=== PATIENT | female | born 1970 | race American Indian/Alaskan Native ===

== ENCOUNTER 2022-05-14 06:51 | Emergency (ER) | payer MEDICAID ==
[2022-05-14] MEDS ORDERED: SODIUM CHLORIDE 0.9% 1000 ML 1,000 ML IV ONE (07:15)
[2022-05-14] MEDS ORDERED: MECLIZINE 25 MG TAB PO ONE (07:15)
[2022-05-14] MEDS ORDERED: FAMOTIDINE 20 MG/2 ML INJ IV ONE (07:15)
[2022-05-14] MEDS ORDERED: ONDANSETRON 4 MG/2 ML INJ IV ONE (07:15)
--- NOTE | 2022-05-14 07:17 | Emergency Department Report ---
ED Dizziness HPI - General Chief Complaint: Dizziness Stated Complaint: DIZZINESS,BP MEDS REFILL Time Seen by Provider: 05/14/22 07:07 Source: patient, EMS Mode of arrival: Stretcher Limitations: No Limitations - History of Present Illness Initial Comments: 52-year-old female with past medical history of hypertension and gastritis presents to the hospital complaining of dizziness upon waking at 4:30 AM. She describes a spinning sensation with associated nausea without vomiting. Symptoms worse with sitting up and head movement. She denies headache, chest pain, shortness of breath, and palpitations. She has been noncompliant with her BP medication x1 week. Medications include lisinopril 40 mg daily and amlodipine 10 mg daily. Allergies: Oxycodone causes her to "pass out" - Related Data Previous Rx's Medication Instructions Recorded Last Taken Type Meclizine [Antivert] 25 mg PO TID PRN #30 tab 05/14/22 Unknown Rx Ondansetron [Zofran Odt] 4 mg PO Q8HR PRN #20 tab.rapdis 05/14/22 Unknown Rx Allergies Allergy/AdvReac Type Severity Reaction Status Date / Time oxycodone AdvReac Unknown Verified 05/14/22 07:17 ED Review of Systems ROS: Stated complaint: DIZZINESS,BP MEDS REFILL Other details as noted in HPI ED Past Medical Hx - Medications Home Medications: Home Medications Medication Instructions Recorded Confirmed Last Taken Type Meclizine [Antivert] 25 mg PO TID PRN #30 tab 05/14/22 Unknown Rx Ondansetron [Zofran Odt] 4 mg PO Q8HR PRN #20 tab.rapdis 05/14/22 Unknown Rx ED Physical Exam - General Limitations: No Limitations - Other Other exam information: General: No acute distress Head: Atraumatic Eyes: normal appearance ENT: Moist mucous membranes Neck: Normal appearance, no midline tenderness Chest: Clear to auscultation bilaterally CV: Bradycardic regular rhythm Abdomen: Soft, normal bowel sounds, nontender, nondistended, no rebound or guarding Back: Normal inspection Extremity: Normal inspection, full range of motion Neuro: Alert O x 3, no facial asymmetry, speech clear, no gross motor sensory deficit Psych: Appropriate behavior Skin: No rash ED Course Vital Signs 05/14/22 05/14/22 05/14/22 06:58 07:02 08:22 Temperature 98.6 F 97.9 F Pulse Rate 61 43 L Respiratory 16 17 Rate Blood Pressure 141/72 176/89 [Right] O2 Sat by Pulse 98 98 97 Oximetry 05/14/22 05/14/22 05/14/22 08:38 09:12 09:15 Temperature 98.1 F Pulse Rate 66 48 L Respiratory 20 15 14 Rate Blood Pressure 177/65 176/91 [Right] O2 Sat by Pulse 100 100 Oximetry - Reevaluation(s) Reevaluation #1: 05/14/22 10:26 Patient reports feeling much better with ED treatment. Able to ambulate ED Medical Decision Making - Lab Data Result diagrams: 05/14/22 07:29 05/14/22 07:29 Lab Results 05/14/22 05/14/22 05/14/22 Range/Units 07:29 07:29 07:29 WBC 5.9 (4.5-11.0) K/mm3 RBC 3.99 (3.65-5.03) M/mm3 Hgb 10.8 (10.1-14.3) gm/dl Hct 33.8 (30.3-42.9) % MCV 85 (79-97) fl MCH 27 L (28-32) pg MCHC 32 (30-34) % RDW 15.4 H (13.2-15.2) % Plt Count 216 (140-440) K/mm3 Lymph % (Auto) 54.3 H (13.4-35.0) % [place] % (Auto) 8.4 H (0.0-7.3) % Eos % (Auto) 1.3 (0.0-4.3) % Baso % (Auto) 0.5 (0.0-1.8) % Lymph # (Auto) 3.2 (1.2-5.4) K/mm3 [place] # (Auto) 0.5 (0.0-0.8) K/mm3 Eos # (Auto) 0.1 (0.0-0.4) K/mm3 Baso # (Auto) 0.0 (0.0-0.1) K/mm3 Seg Neutrophils % 35.5 L (40.0-70.0) % Seg Neutrophils # 2.1 (1.8-7.7) K/mm3 Sodium 145 (137-145) mmol/L Potassium 3.6 (3.6-5.0) mmol/L Chloride 108.2 H (98-107) mmol/L Carbon Dioxide 28 (22-30) mmol/L Anion Gap 12 mmol/L BUN 16 (7-17) mg/dL Creatinine 0.9 (0.6-1.2) mg/dL Estimated GFR > 60 ml/min BUN/Creatinine Ratio 18 % Glucose 100 (65-100) mg/dL Calcium 9.6 (8.4-10.2) mg/dL Magnesium 2.00 (1.7-2.3) mg/dL Total Bilirubin 0.20 (0.1-1.2) mg/dL AST 22 (5-40) units/L ALT 26 (7-56) units/L Alkaline Phosphatase 58 (35-129) units/L Total Protein 6.5 (6.3-8.2) g/dL Albumin 4.2 (3.9-5) g/dL Albumin/Globulin Ratio 1.8 % TSH 1.550 (0.270-4.200) mlU/mL Free T4 1.11 (0.76-1.46) ng/dL - EKG Data -: EKG Interpreted by Me EKG shows normal: sinus rhythm, ST-T waves (no stemi) Rate: bradycardia (47) - Medical Decision Making Patient feels much better with ED treatment including IV fluids, Zofran, and meclizine. Labs unremarkable. EKG shows sinus bradycardia that improved prior to discharge. Pt ambulates without difficulty. During my evaluation systolic pressure is 140s at the bedside, Critical Care Time: No Critical care attestation.: If time is entered above; I have spent that time in minutes in the direct care of this critically ill patient, excluding procedure time. ED Disposition Clinical Impression: Vertigo Disposition: 01 HOME / SELF CARE / HOMELESS Is pt being admited?: No Does the pt Need Aspirin: No Condition: Stable Instructions: Dizziness Additional Instructions: Take the medication as prescribed. Follow-up with your doctor or doctor/clinic provided. Return if symptoms worsen as indicated by your discharge instructions. Prescriptions: Meclizine [Antivert] 25 mg PO TID PRN #30 tab PRN Reason: Vertigo Ondansetron [Zofran Odt] 4 mg PO Q8HR PRN #20 tab.rapdis PRN Reason: Nausea And Vomiting Referrals: PRIMARY CARE, [Primary Care Provider] - 3-5 Days [facility] [Provider Group] - 3-5 Days SHAUNA SPEARS MD [Referring] - 3-5 Days Time of Disposition: 11:12 - Assessment Assessment Interval: Baseline - Level of Consciousness 1a. Level of Consciousness: alert/keenly responsive - LOC Questions 1b. LOC Questions: answers both correctly - LOC Command 1c. LOC Commands: performs tasks correctly - Best Gaze 2. Best Gaze: normal - Visual 3. Visual: no visual loss - Facial Palsy 4. Facial Palsy: normal symmetrical movement - Motor Arm 5a. Motor Arm Left: no drift 5b. Motor Arm Right: no drift - Motor Leg 6a. Motor Leg Left: no drift 6b. Motor Leg Right: no drift - Limb Ataxia 7. Limb Ataxia: absent - Sensory 8. Sensory: normal - Best Language 9. Best Language: no aphasia - Dysarthria 10. Dysarthria: normal - Extinction and Inattention 11. Extinction/Inattention: no abnormality - Scoring Total Score: 0 Stroke Severity: No Stroke Symptoms
[2022-05-14 07:59] LABS: Basophils % (Auto) 0.5 % (0.0-1.8); Eosinophils # (Auto) 0.1 K/mm3 (0.0-0.4); Eosinophils % (Auto) 1.3 % (0.0-4.3); Hematocrit 33.8 % (30.3-42.9); Hemoglobin 10.8 gm/dl (10.1-14.3); Lymphocytes # (Auto) 3.2 K/mm3 (1.2-5.4); Lymphocytes % (Auto) 54.3 % (13.4-35.0); Mean Corpuscular HGB Conc 32 % (30-34); Mean Corpuscular Volume 85 fl (79-97); Monocytes # (Auto) 0.5 K/mm3 (0.0-0.8); Monocytes % (Auto) 8.4 % (0.0-7.3); Platelet Count 216 K/mm3 (140-440); Red Blood Count 3.99 M/mm3 (3.65-5.03); Red Cell Distribution Width 15.4 % (13.2-15.2)
[2022-05-14 08:21] LABS: Alanine Aminotransferase 26 units/L (7-56); Albumin 4.2 g/dL (3.9-5); BUN/Creatinine Ratio 18; Blood Urea Nitrogen 16 mg/dL (7-17); Calcium 9.6 mg/dL (8.4-10.2); Hemolysis Index 2
[2022-05-14 08:31] LABS: Free T4 (Free Thyroxine) 1.11 ng/dL (0.76-1.46)
[2022-05-14 12:18] VITALS: BP 147/85
--- NOTE | 2022-05-15 10:30 | Electrocardiograph Report ---
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
== END 2022-05-14 12:00 | disposition home or self-care (01) ==
LOC: ED 06:51
DX: R42 Dizziness and giddiness (principal); R11.0 Nausea; Z88.5 Allergy status to narcotic agent; Z79.899 Other long term (current) drug therapy
CPT/HCPCS: 36415; 80053; 83735; 84439; 84443; 85025; 93005; 96361; 96374; 96375; 99284; J2405; J3490; J7030